=== PATIENT | male | born 1995 | race Caucasian/White ===

== ENCOUNTER 2016-07-13 20:25 | Emergency (ER) | payer OTHER ==
[2016-07-13] MEDS ORDERED: ALPRAZolam 0.25 MG TAB ONE (20:53)
== END 2016-07-13 20:58 ==
LOC: NAV ERS 20:25
DX: Z02.89 Encounter for other administrative examinations (principal); F41.9 Anxiety disorder, unspecified; F32.9 Major depressive disorder, single episode, unspecified; Z87.891 Personal history of nicotine dependence; Z79.899 Other long term (current) drug therapy
CPT/HCPCS: 99283